=== PATIENT | male | born 1960 | race Caucasian/White ===

== ENCOUNTER → 2016-09-22 | Outpatient (CLI) | payer BC ==
--- NOTE | 2016-09-22 12:42 | XR ---
EXAMINATION TYPE: XR chest 2V DATE OF EXAM: 09/22/2016 12:35 PM COMPARISON: 07/21/2015 HISTORY: Cough FINDINGS: The lungs are clear and there is no pneumothorax, pleural effusion, or focal pneumonia. Stable prom inence of the pulmonary arteries bilaterally correlate for pulmonary arterial hypertension. IMPRESSION: 1. No acute process.
== END | disposition home or self-care (01) ==
LOC: RADXRMAIN 12:26
PROVIDERS: ATTEND Internal Medicine
DX: R05 Cough (principal)
CPT/HCPCS: 71020

== ENCOUNTER 2016-09-25 14:13 | Emergency (ER) | payer BC ==
[2016-09-25] MEDS ORDERED: ACETAMINOPHEN TAB 500 MG TAB PO STA (15:51)
[2016-09-25] MEDS ORDERED: SODIUM CHLORIDE 0.9% 1,000 ML IV STA (15:51)
[2016-09-25] MEDS ORDERED: SODIUM CHLORIDE 0.9% 500 ML IV STA (15:51)
--- NOTE | 2016-09-25 15:55 | ED ---
General Adult HPI - General Chief complaint: Fever Stated complaint: shaking Time Seen by Provider: 09/25/16 15:40 Source: patient, family, RN notes reviewed, old records reviewed Mode of arrival: ambulatory Limitations: no limitations - History of Present Illness Initial comments: Chief complaint and history of present illness this is a 56-year-old male here with his . The patient has had a semi-productive cough he notices to be greenish in color for 6 weeks. He had chest x-ray 3 days ago which was reported to be normal. Today the patient developed a fever and shakes. No specific pains. Denying nasal congestion he does have mild headache from coughing. He reports he coughs so hard sometimes he almost passes out. The patient's denying any chest pain no abdominal pain no flank pain no frequency urgency dysuria no skin rashes. All systems were otherwise reviewed. Past medical problem hypertension. Surgeries none. Family history mother had a stroke father had seizures. Patient denies ALLERGIES nonsmoker drinks alcohol socially. - Related Data Home Medications Medication Instructions Recorded Confirmed Allopurinol [Zyloprim] 100 mg PO DAILY 09/25/16 09/25/16 Ascorbic Acid [Vitamin C] 500 mg PO DAILY 09/25/16 09/25/16 Atenolol [Tenormin] 25 mg PO DAILY 09/25/16 09/25/16 Multivitamins, Thera [Multivitamin] 1 tab PO DAILY 09/25/16 09/25/16 Allergies Allergy/AdvReac Type Severity Reaction Status Date / Time No Known Allergies Allergy Verified 09/25/16 15:56 Review of Systems ROS Statement: Those systems with pertinent positive or pertinent negative responses have been documented in the HPI. ROS Other: All systems not noted in ROS Statement are negative. Past Medical History Past Medical History: Hypertension History of Any Multi-Drug Resistant Organisms: None Reported Past Surgical History: No Surgical Hx Reported Past Psychological History: No Psychological Hx Reported Smoking Status: Never smoker Past Alcohol Use History: Occasional Past Drug Use History: None Reported General Exam - General Exam Comments Initial Comments: General: The patient is awake and alert, planes shakes and chills at work today. No pain. Case of productive green cough. Vital signs temp 11.7 pulse 122 respiratory rate 20 pulse ox 99% room air blood pressure 142/78. The patient does have hypertension and is stressed. He will be seeing his family physician in the next several days. Eye: Pupils are equal, round and reactive to light, extra-ocular movements are intact ; there is normal conjunctiva bilaterally. No signs of icterus. Ears, nose, mouth and throat: There are moist mucous membranes and no oral lesions. Neck: The neck is supple, there is no tenderness no anterior cervical lymphadenopathy. Cardiovascular: Tachycardic heart rate, 120. Patient does have fever.. No murmur, rub or gallop is appreciated. Respiratory: Lungs are clear to auscultation, respirations are non-labored, breath sounds are equal. No wheezes, stridor, rales, or rhonchi. He reports over the last several weeks he's had occasional productive cough greenish in color. Chest x- ray done several days ago at this hospital was reported to be negative by radiology. Gastrointestinal: Soft, non-distended, non-tender abdomen without masses or organomegaly noted. There is no rebound or guarding present. No CVA tenderness. Bowel sounds are unremarkable. Back: There is no tenderness to palpation in the midline. There is no obvious deformity. No rashes noted. Musculoskeletal: Normal ROM, no tenderness, There is no pedal edema. There is no calf tenderness or swelling. Sensation intact. Pulses equal bilaterally 2+. Neurological: No neuro deficits noted or complained of. Skin: Skin is warm and dry and no rashes or lesions are noted. Limitations: no limitations Course Vital Signs 09/25/16 09/25/16 14:29 15:30 Temperature 101.7 F H Pulse Rate 122 H Pulse Rate [ 120 H [employer] ] Respiratory 20 20 Rate Blood Pressure 142/78 O2 Sat by Pulse 99 Oximetry Medical Decision Making - Medical Decision Making Medical decision the patient's white count 12.9 hemoglobin 15 hematocrit 44 with plasma like acid slightly elevated 2.7. Potassium 4.1 BUN 18 creatinine 1.21 with GFR greater than 60 and a sugar of 146. AST ALT mildly elevated influenza negative for AB. Urine clean no signs of infection Again the patient is not complaining of any pain to his head neck chest flanks abdomen or extremities. He was given a gram of Tylenol. Reports feeling significantly better. He was hydrated in the emergency room. Reexamination finds no particular problems with explain other than a viral syndrome this time. The case was discussed with , he states have the patient follow-up with him in office a 145 tomorrow afternoon. Patient advised return emergency room with any questions or problems between now and then. - Lab Data Result diagrams: 09/25/16 16:20 09/25/16 16:20 Lab Results 09/25/16 09/25/16 09/25/16 Range/Units 16:20 16:20 16:20 WBC 12.9 H (3.8-10.6) k/uL RBC 4.87 (4.30-5.90) m/uL Hgb 15.1 (13.0-17.5) gm/dL Hct 44.6 (39.0-53.0) % MCV 91.7 (80.0-100.0) fL MCH 31.1 (25.0-35.0) pg MCHC 33.9 (31.0-37.0) g/dL RDW 12.5 (11.5-15.5) % Plt Count 213 (150-450) k/uL Neutrophils % 92 % Lymphocytes % 2 % Monocytes % 4 % Eosinophils % 1 % Basophils % 0 % Neutrophils # 11.9 H (1.3-7.7) k/uL Lymphocytes # 0.3 L (1.0-4.8) k/uL Monocytes # 0.6 (0-1.0) k/uL Eosinophils # 0.1 (0-0.7) k/uL Basophils # 0.0 (0-0.2) k/uL Sodium 139 (137-145) mmol/L Potassium 4.1 (3.5-5.1) mmol/L Chloride 103 (98-107) mmol/L Carbon Dioxide 22 (22-30) mmol/L Anion Gap 14 mmol/L BUN 18 (9-20) mg/dL Creatinine 1.21 (0.66-1.25) mg/dL Est GFR (MDRD) Af Amer >60 (>60 ml/min/1.73 sqM) Est GFR (MDRD) Non-Af >60 (>60 ml/min/1.73 sqM) Glucose 146 H (74-99) mg/dL Plasma Lactic Acid Wesley (0.7-2.0) mmol/L Calcium 9.5 (8.4-10.2) mg/dL Total Bilirubin 1.1 (0.2-1.3) mg/dL AST 60 H (17-59) U/L ALT 84 H (21-72) U/L Alkaline Phosphatase 68 (38-126) U/L Total Protein 7.4 (6.3-8.2) g/dL Albumin 4.6 (3.5-5.0) g/dL Urine Color Urine Appearance (Clear) Urine pH (5.0-8.0) Ur Specific Roselle (1.001-1.035) Urine Protein (Negative) Urine Glucose (UA) (Negative) Urine Ketones (Negative) Urine Blood (Negative) Urine Nitrate (Negative) Urine Bilirubin (Negative) Urine Urobilinogen (<2.0) mg/dL Ur Leukocyte Esterase (Negative) Influenza Type A RNA Not Detected (Not Detectd) Influenza Type B (PCR) Not Detected (Not Detectd) 09/25/16 09/25/16 Range/Units 16:20 16:20 WBC (3.8-10.6) k/uL RBC (4.30-5.90) m/uL Hgb (13.0-17.5) gm/dL Hct (39.0-53.0) % MCV (80.0-100.0) fL MCH (25.0-35.0) pg MCHC (31.0-37.0) g/dL RDW (11.5-15.5) % Plt Count (150-450) k/uL Neutrophils % % Lymphocytes % % Monocytes % % Eosinophils % % Basophils % % Neutrophils # (1.3-7.7) k/uL Lymphocytes # (1.0-4.8) k/uL Monocytes # (0-1.0) k/uL Eosinophils # (0-0.7) k/uL Basophils # (0-0.2) k/uL Sodium (137-145) mmol/L Potassium (3.5-5.1) mmol/L Chloride (98-107) mmol/L Carbon Dioxide (22-30) mmol/L Anion Gap mmol/L BUN (9-20) mg/dL Creatinine (0.66-1.25) mg/dL Est GFR (MDRD) Af Amer (>60 ml/min/1.73 sqM) Est GFR (MDRD) Non-Af (>60 ml/min/1.73 sqM) Glucose (74-99) mg/dL Plasma Lactic Acid Wesley 2.7 H* (0.7-2.0) mmol/L Calcium (8.4-10.2) mg/dL Total Bilirubin (0.2-1.3) mg/dL AST (17-59) U/L ALT (21-72) U/L Alkaline Phosphatase (38-126) U/L Total Protein (6.3-8.2) g/dL Albumin (3.5-5.0) g/dL Urine Color Yellow Urine Appearance Clear (Clear) Urine pH 5.5 (5.0-8.0) Ur Specific Ros[place] 1.015 (1.001-1.035) Urine Protein Negative (Negative) Urine Glucose (UA) Negative (Negative) Urine Ketones Negative (Negative) Urine Blood Negative (Negative) Urine Nitrate Negative (Negative) Urine Bilirubin Negative (Negative) Urine Urobilinogen <2.0 (<2.0) mg/dL Ur Leukocyte Esterase Negative (Negative) Influenza Type A RNA (Not Detectd) Influenza Type B (PCR) (Not Detectd) Disposition Clinical Impression: Acute viral syndrome Disposition: HOME SELF-CARE Condition: Stable Instructions: Fever in Adults (ED) Additional Instructions: Continue with Tylenol or ibuprofen for fever. Follow-up with tomorrow at 1: 45 PM in office. Return emergency room if having difficulties or problems. Time of Disposition: 18:02
[2016-09-25 16:44] LABS: Appearance,Urine Clear (Clear); Bilirubin,Urine Negative (Negative); Glucose,Urine (UA) Negative (Negative); Ketones,Urine Negative (Negative); Leukocyte Esterase,Urine Negative (Negative); Nitrite,Urine Negative (Negative); PH, Urine 5.5 (5.0-8.0); Protein,Urine Negative (Negative); Specific Gravity,Urine 1.015 (1.001-1.035); UA Billing (MACRO vs. MICRO) CHEM; Urobilinogen,Urine <2.0 mg/dL (<2.0)
[2016-09-25 16:54] LABS: Basophils % (A) 0 %; CH 32.5; CHCM 35.6; Eosinophils # (A) 0.1 k/uL (0-0.7); Eosinophils % (A) 1 %; HCT 44.6 % (39.0-53.0); HGB 15.1 gm/dL (13.0-17.5); Luc # (Auto) 0.03; Luc % (Auto) 0; Lymphocytes # (A) 0.3 k/uL (1.0-4.8); Lymphocytes % (A) 2 %; MCH 31.1 pg (25.0-35.0); MCHC 33.9 g/dL (31.0-37.0); MCV 91.7 fL (80.0-100.0); Mean Platelet Volume 7.8; Monocytes # (A) 0.6 k/uL (0-1.0); Monocytes % (A) 4 %; Neutrophils # (A) 11.9 k/uL (1.3-7.7); Neutrophils % (A) 92 %; RBC 4.87 m/uL (4.30-5.90); RDW 12.5 % (11.5-15.5); WBC 12.9 k/uL (3.8-10.6)
[2016-09-25 17:05] LABS: ALT 84 U/L (21-72); AST 60 U/L (17-59); Alkaline Phosphatase 68 U/L (38-126); Anion Gap 14 mmol/L; Blood Urea Nitrogen 18 mg/dL (9-20); Calcium 9.5 mg/dL (8.4-10.2); Carbon Dioxide 22 mmol/L (22-30); Chloride 103 mmol/L (98-107); Glucose 146 mg/dL (74-99); Non-African American GFR(MDRD) >60 (>60 ml/min/1.73 sqM); Potassium 4.1 mmol/L (3.5-5.1); Sodium 139 mmol/L (137-145); Total Bilirubin 1.1 mg/dL (0.2-1.3); Total Protein 7.4 g/dL (6.3-8.2)
[2016-09-25 18:03] VITALS: BP 126/63; PULSE 104; RESP 18; TEMP 101.9
[2016-09-25] MEDS ORDERED: IBUPROFEN 600 MG STARTER PACK 4 TAB BTL PO STA (18:03)
== END 2016-09-25 18:33 | disposition home or self-care (01) ==
LOC: EC 14:13
DX: B34.9 Viral infection, unspecified (principal); I10 Essential (primary) hypertension
CPT/HCPCS: 36415; 80053; 81003; 83605; 85025; 87040; 87077; 87086; 87186; 87502; 96360; 99284

== ENCOUNTER → 2017-01-13 | Outpatient (CLI) | payer BC ==
[2017-01-13 08:49] LABS: Basophils % (A) 1 %; CH 31.6; CHCM 33.8; Eosinophils # (A) 0.2 k/uL (0-0.7); Eosinophils % (A) 4 %; HCT 49.8 % (39.0-53.0); HDW 2.57; Luc # (Auto) 0.15; Luc % (Auto) 2; Lymphocytes # (A) 1.3 k/uL (1.0-4.8); Lymphocytes % (A) 20 %; MCH 32.1 pg (25.0-35.0); MCHC 34.2 g/dL (31.0-37.0); Monocytes # (A) 0.6 k/uL (0-1.0); Monocytes % (A) 9 %; Neutrophils # (A) 4.1 k/uL (1.3-7.7); Neutrophils % (A) 64 %; WBC 6.4 k/uL (3.8-10.6); WBC (Perox) 6.19
[2017-01-13 08:50] LABS: Appearance,Urine Clear (Clear); Bilirubin,Urine Negative (Negative); Glucose,Urine (UA) Negative (Negative); Ketones,Urine Negative (Negative); Leukocyte Esterase,Urine Negative (Negative); Nitrite,Urine Negative (Negative); Protein,Urine Negative (Negative); Specific Gravity,Urine 1.009 (1.001-1.035); UA Billing (MACRO vs. MICRO) CHEM; Urobilinogen,Urine <2.0 mg/dL (<2.0)
[2017-01-13 10:25] LABS: Hemoglobin A1C 5.5 % (4.2-6.1)
[2017-01-13 12:26] LABS: ALT 90 U/L (21-72); AST 60 U/L (17-59); Alkaline Phosphatase 73 U/L (38-126); Anion Gap 10 mmol/L; Blood Urea Nitrogen 12 mg/dL (9-20); Calcium 9.3 mg/dL (8.4-10.2); Carbon Dioxide 24 mmol/L (22-30); Chloride 108 mmol/L (98-107); Cholesterol 173 mg/dL (<200); Creatine Kinase 156 U/L (55-170); Glucose 121 mg/dL (74-99); HDL Cholesterol 46 mg/dL (40-60); Non-African American GFR(MDRD) >60 (>60 ml/min/1.73 sqM); Potassium 4.4 mmol/L (3.5-5.1); Sodium 142 mmol/L (137-145); Total Bilirubin 0.7 mg/dL (0.2-1.3); Total Protein 7.6 g/dL (6.3-8.2); Triglycerides 114 mg/dL (<150); Uric Acid 7.2 mg/dL (3.5-8.5)
[2017-01-14 12:17] LABS: Prostate Specific Antigen 1.22 ng/mL (0.00-4.00)
== END | disposition home or self-care (01) ==
LOC: LABWHC1 08:16
PROVIDERS: ATTEND Internal Medicine
DX: N40.0 Benign prostatic hyperplasia without lower urinary tract symptoms (principal); E78.00 Pure hypercholesterolemia, unspecified; I10 Essential (primary) hypertension
CPT/HCPCS: 36415; 80053; 80061; 81003; 82550; 83036; 84153; 84439; 84443; 84550; 85025

== ENCOUNTER → 2018-06-19 | Outpatient (CLI) | payer BC ==
--- NOTE | 2018-06-19 13:14 | XR ---
EXAMINATION TYPE: XR cervical spine comp DATE OF EXAM: 06/19/2018 COMPARISON: 07/13/2014 HISTORY: 58-year-old male cervical stenosis, right shoulder pain TECHNIQUE: 6 views FINDINGS: No predental space widening or prevertebral soft tissue swelling. Reversal of the normal cervical agnes dosis. Degenerative changes at the C1 dens articulation. Uncovertebral joint and facet arthropathy th roughout. Alignment is maintained. Normal odontoid view. Mild degenerative disc space narrowing at C5 -C6 and C6-C7. On the right, there is moderate bony spondylotic near foraminal narrowing at C6-C7 and mild at C3-C4 and C5-C6. On the left, limited obliquity for optimal assessment of the neuroforamen. Possibly moderate narrowin g at C6-C7 and mild at C5-C6. IMPRESSION: Mild to moderate multilevel spondylotic change. Moderate neuroforaminal narrowing on the right at C6- C7 and mild at C3-C4 and C5-C6.
== END ==
LOC: RADXRMAIN 12:19
PROVIDERS: ATTEND Internal Medicine
DX: M99.71 Connective tissue and disc stenosis of intervertebral foramina of cervical region (principal); M47.812 Spondylosis without myelopathy or radiculopathy, cervical region
CPT/HCPCS: 72050

== ENCOUNTER → 2019-03-06 | Outpatient (CLI) | payer BC ==
--- NOTE | 2019-03-06 11:43 | XR ---
EXAMINATION TYPE: XR chest 2V DATE OF EXAM: 03/06/2019 COMPARISON: 09/22/2016 HISTORY: 59-year-old male with cough TECHNIQUE: Frontal and lateral views FINDINGS: The cardiomediastinal silhouette, aorta, and pulmonary vasculature are within normal limits. Lungs an d pleural spaces are clear. IMPRESSION: No acute cardiopulmonary process.
== END | disposition home or self-care (01) ==
LOC: RADXRMAIN 09:21
PROVIDERS: ATTEND Internal Medicine
DX: R05 Cough (principal)
CPT/HCPCS: 71046

== ENCOUNTER → 2020-02-16 | Outpatient (CLI) | payer BC ==
[2020-02-16 10:12] LABS: Basophils % (A) 0 %; Eosinophils # (A) 0.2 k/uL (0-0.7); Eosinophils % (A) 3 %; HCT 46.6 % (39.0-53.0); HGB 15.5 gm/dL (13.0-17.5); Lymphocytes # (A) 2.4 k/uL (1.0-4.8); Lymphocytes % (A) 32 %; MCH 31.6 pg (25.0-35.0); MCHC 33.4 g/dL (31.0-37.0); MCV 94.8 fL (80.0-100.0); Mean Platelet Volume 7.6; Monocytes # (A) 0.5 k/uL (0-1.0); Monocytes % (A) 7 %; Neutrophils # (A) 4.1 k/uL (1.3-7.7); Neutrophils % (A) 55 %; Platelet Count 255 k/uL (150-450); RBC 4.91 m/uL (4.30-5.90); RDW 12.2 % (11.5-15.5); WBC 7.5 k/uL (3.8-10.6)
[2020-02-16 17:20] LABS: African American GFR (CKD) 82.9 (60.0-200.0); BUN/Creat Ratio 12.73 Ratio (12.00-20.00); Calcium 9.2 mg/dL (8.7-10.3); Non-African American GFR(CKD) 71.6 (60.0-200.0); Potassium 4.5 mmol/L (3.5-5.5)
== END | disposition home or self-care (01) ==
LOC: LABWHC1 09:33
PROVIDERS: ATTEND Urology
DX: N43.41 Spermatocele of epididymis, single (principal)
CPT/HCPCS: 36415; 80048; 85025

== ENCOUNTER → 2020-06-29 | Outpatient (CLI) | payer BC ==
--- NOTE | 2020-06-29 20:38 | CT ---
EXAMINATION TYPE: CT soft tissue neck w con DATE OF EXAM: 06/29/2020 COMPARISON: 05/06/2014 HISTORY: Right parotitis, Sialoadenitis CT DLP: 538.30 mGycm CONTRAST: Patient injected with 100 ml mL of Isovue 300. TECHNIQUE: Axial images at 3 mm thick sections. Reconstructed images in the coronal plane and sagitt al plane are reviewed. FINDINGS: Limited CT sections are obtained the lung apices. The lung apices appear clear. CT neck: The torus tubarius and fossa of Rosenmuller are normal. Finance Lead spaces are normal. Para nasal sinuses and mastoid air cells are clear. Submandibular glands appear normal. No suspicious calcifications are evident. Parotid glands appear n ormal. No suspicious calcifications are evident. Submental space appears normal. Expected region of t he ducts is normal. Parotid glands appear normal and symmetrical. Submandibular glands, are normal. Parapharyngeal spaces are normal. No suspicious adenopathy is evident. The hypopharynx appears within normal limits. Vocal cord level appear symmetrical. Thyroid as visualized is normal. Osseous structures are normal. IMPRESSIONS: 1. No suspicious changes suggest a calcification within the salivary ducts. Right Parotid and subman dibular glands are unremarkable.
== END | disposition home or self-care (01) ==
LOC: RADCTMAIN 08:02
PROVIDERS: ATTEND Otolaryngology
DX: R22.1 Localized swelling, mass and lump, neck (principal); K11.20 Sialoadenitis, unspecified
CPT/HCPCS: 70491; Q9967

== ENCOUNTER → 2020-07-15 | Outpatient (CLI) | payer BC | END | disposition home or self-care (01) | LOC: LABWHC1 11:13 | PROVIDERS: ATTEND Internal Medicine | DX: Z20.828 Contact with and (suspected) exposure to other viral communicable diseases (principal) | CPT/HCPCS: U0003; C9803 ==

== ENCOUNTER → 2020-07-29 | Outpatient (CLI) | payer BC | END | disposition home or self-care (01) | LOC: LABWHC1 15:42 | PROVIDERS: ATTEND Internal Medicine | DX: Z20.828 Contact with and (suspected) exposure to other viral communicable diseases (principal) | CPT/HCPCS: U0003; C9803 ==

== ENCOUNTER → 2020-12-23 | Outpatient (CLI) | payer BC | END | disposition home or self-care (01) | LOC: LABWHC1 13:53 | PROVIDERS: ATTEND Internal Medicine | DX: Z20.822 Contact with and (suspected) exposure to COVID-19 (principal) | CPT/HCPCS: 36415; 86769 ==

== ENCOUNTER → 2020-12-28 | Outpatient (CLI) | payer BC ==
--- NOTE | 2020-12-28 14:49 | XR ---
EXAMINATION TYPE: XR chest 2V DATE OF EXAM: 12/28/2020 COMPARISON: 03/06/2019 HISTORY: 60-year-old male U07.1, COVID 19. TECHNIQUE: Frontal and lateral views FINDINGS: Heart normal size. Aorta and pulmonary vasculature within normal limits. Some minimal strandy areas o f atelectasis. No consolidation or pleural effusion. IMPRESSION: No acute cardiopulmonary process.
== END | disposition home or self-care (01) ==
LOC: RADXRMAIN 12:07
PROVIDERS: ATTEND Internal Medicine
DX: U07.1 COVID-19 (principal)
CPT/HCPCS: 71046

== ENCOUNTER → 2021-09-23 | Outpatient (CLI) | payer BC ==
[2021-09-23 14:47] LABS: Basophils # (A) 0.04 X 10*3/uL (0.00-0.10); Basophils % (A) 0.5 %; Eosinophils # (A) 0.15 X 10*3/uL (0.04-0.35); HCT 48.3 % (39.6-50.0); HGB 15.7 g/dL (13.0-17.0); Lymphocytes # (A) 2.43 X 10*3/uL (0.90-5.00); Lymphocytes % (A) 32.7 %; MCH 30.5 pg (27.0-32.0); MCHC 32.5 g/dL (32.0-37.0); Mean Platelet Volume 9.6 fL (9.5-12.2); Monocytes % (A) 9.4 %; Neutrophils # (A) 4.07 X 10*3/uL (1.80-7.70); Neutrophils % (A) 54.7 %; Platelet Count 267 X 10*3/uL (140-440); RBC 5.14 X 10*6/uL (4.40-5.60); RDW 12.1 % (11.5-14.5); WBC 7.44 X 10*3/uL (4.50-10.00)
[2021-09-23 15:50] LABS: ALT 65 U/L (10-49); AST 55 U/L (14-35); African American GFR (CKD) 79.7 (60.0-200.0); Albumin 5.2 g/dL (3.8-4.9); Albumin/Globulin Ratio 2.18 (1.60-3.17); Alkaline Phosphatase 80 U/L (41-126); Amylase 65 U/L (23-121); BUN/Creat Ratio 14.42 Ratio (12.00-20.00); Blood Urea Nitrogen 16.3 mg/dL (9.0-27.0); Calcium 9.7 mg/dL (8.7-10.3); Carbon Dioxide 22.4 mmol/L (20.0-27.5); Chloride 101 mmol/L (96-109); Chol/HDL Ratio 3.14 Ratio; Globulin 2.4 g/dL (1.6-3.3); Glucose 107 mg/dL (70-110); LDH 211 U/L (120-246); LDL Cholesterol,Calculated 85.3 mg/dL (0.0-131.0); Lipase 93 U/L (14-60); Non-African American GFR(CKD) 68.8 (60.0-200.0); Potassium 4.6 mmol/L (3.5-5.5); Sodium 137 mmol/L (135-145); Total Protein 7.6 g/dL (6.2-8.2); Uric Acid 8.1 mg/dL (3.7-8.7)
== END | disposition home or self-care (01) ==
LOC: LABWHC1 09:59
PROVIDERS: ATTEND Internal Medicine
DX: E78.2 Mixed hyperlipidemia (principal); R10.12 Left upper quadrant pain; N40.0 Benign prostatic hyperplasia without lower urinary tract symptoms; M10.00 Idiopathic gout, unspecified site
CPT/HCPCS: 36415; 80053; 80061; 82150; 83036; 83615; 83690; 84153; 84550; 85025

== ENCOUNTER → 2021-09-30 | Outpatient (CLI) | payer BC ==
--- NOTE | 2021-09-30 20:02 | CT ---
EXAMINATION TYPE: CT abdomen w con CT DLP: 1617.9 mGycm, Automated exposure control for dose reduction was used. DATE OF EXAM: 09/30/2021 6:28 PM COMPARISON: None CLINICAL INDICATION:Male, 61 years old with history of R10.12 Left Upper quad pain, LUQ PAIN TECHNIQUE: Standard CT of the abdomen following the administration of 100 cc of Isovue 300 IV contr ast material. Coronal and sagittal reformats were performed. FINDINGS: LOWER CHEST: Unremarkable ABDOMEN LIVER: Unremarkable GALLBLADDER AND BILE DUCTS: Unremarkable. PANCREAS: Unremarkable. SPLEEN: Small splenule is present. ADRENAL GLANDS: Unremarkable. KIDNEYS AND URETERS: No evidence of hydronephrosis or renal calculus. The ureters are unremarkable. STOMACH AND BOWEL: No evidence of bowel obstruction. PERITONEUM: No evidence of pneumoperitoneum or free fluid. VASCULATURE: Mild atherosclerotic calcifications are present throughout the abdominal aorta and its b ranches. MUSCULOSKELETAL: Moderate disc degeneration changes are present throughout the thoracolumbar spine. LYMPH NODES: No gross evidence for lymphadenopathy. SOFT TISSUE/ABDOMINAL WALL: Unremarkable IMPRESSION: 1. No evidence for acute abdominal process or finding to explain the patient's symptomology. 2. Colonic diverticulosis.
== END | disposition home or self-care (01) ==
LOC: RADCTMAIN 17:18
PROVIDERS: ATTEND Internal Medicine
DX: K57.30 Diverticulosis of large intestine without perforation or abscess without bleeding (principal)
CPT/HCPCS: 74160; Q9967

== ENCOUNTER → 2021-10-21 | Outpatient (CLI) | payer BC ==
--- NOTE | 2021-10-21 08:26 | US ---
EXAMINATION TYPE: US abdomen complete DATE OF EXAM: 10/21/2021 COMPARISON: CT 09/30/2021 CLINICAL HISTORY: R10.12 Left upper quadrant pain. LUQ pain for the past 5 years EXAM MEASUREMENTS: Liver Length: 17.2 cm Gallbladder Wall: 0.2 cm CBD: 0.3 cm Spleen: 11.5 x 4.6 cm Right Kidney: 12.2 x 5.6 x 5.5 cm Left Kidney: 10.6 x 5.6 x 6.4 cm Pancreas: wnl Liver: Increased attenuation, decreased visualization of vessels suggestive of fatty infiltrate Gallbladder: No stones seen Evidence for sonographic Lynn's sign: No CBD: wnl Spleen: wnl Right Kidney: No hydronephrosis or masses seen Left Kidney: No hydronephrosis or masses seen Upper IVC: wnl Abd Aorta: wnl No abnormalities seen at this time. The liver is homogenous. The intrahepatic portion of the IVC and proximal abdominal aorta are within normal limits. There is no evidence of cholelithiasis. Common bile duct is unremarkable. The visu alized portions of the pancreas are homogenous. The spleen is unremarkable. Kidneys are symmetric a nd free of hydronephrosis. No renal lesions are seen. IMPRESSION: No distinct abnormality appreciated.
== END | disposition home or self-care (01) ==
LOC: RADUSWWP 07:24
PROVIDERS: ATTEND Internal Medicine Gastroenterology
DX: R10.12 Left upper quadrant pain (principal)
CPT/HCPCS: 76700

== ENCOUNTER → 2021-11-08 | Outpatient (CLI) | payer BC ==
--- NOTE | 2021-11-09 06:49 | MR ---
EXAMINATION TYPE: MR conchita/lspine wo con DATE OF EXAM: 11/08/2021 COMPARISON: None HISTORY: Mid back and left low back pain for 6 weeks Multiplanar multiecho imaging of the thoracic and lumbar spine without contrast. Thoracic vertebra have normal alignment. There is minimal posterior disc bulging and several levels of the mid and lower thoracic spine. There is developmentally adequate Spinal canal and no spinal st enosis. Thoracic spinal cord has normal signal pattern. There is no edema. There is no thoracic paraspinal mass. The neural foramina are well maintained. There is loss of heigh t of lower thoracic vertebra involving T9 and T10 and T11 of approximately 10%. The lumbar vertebrae have normal alignment. There is degenerative disc space narrowing and decreased signal in the disks from L3 to S1. There is no significant compression deformity. There is small post erior disc bulging at L3-4 and L5-S1. There is adequate spinal canal and no significant spinal stenos is. The neural foramina are fairly well maintained. There is no lumbar paraspinal mass. The sacroilia c joints appear intact. IMPRESSION: There are spondylotic changes in the thoracic and lumbar spine. There is minimal loss of height of lo wer thoracic vertebra probably related to minimal insufficiency fractures. No significant bone edema seen to suggest an acute fracture. No thoracic spinal stenosis. Multilevel mild thoracic posterior di sc bulging. Degenerative disc changes in the lower lumbar spine with posterior mild disc bulging at L3-4 and L5-S 1 without significant impingement on the spinal canal. No lumbar spinal stenosis.
== END | disposition home or self-care (01) ==
LOC: RADMRIMAIN 11:52
PROVIDERS: ATTEND Internal Medicine
DX: M47.16 Other spondylosis with myelopathy, lumbar region (principal); M51.06 Intervertebral disc disorders with myelopathy, lumbar region; M47.14 Other spondylosis with myelopathy, thoracic region; M51.27 Other intervertebral disc displacement, lumbosacral region
CPT/HCPCS: 72146; 72148

== ENCOUNTER → 2023-01-26 | Outpatient (CLI) | payer BC ==
--- NOTE | 2023-01-26 09:38 | US ---
EXAMINATION TYPE: US liver DATE OF EXAM: 01/26/2023 COMPARISON: US & CT from 2021 CLINICAL INDICATION: Male, 63 years old with history of R74.8 ELEVATED LIVER ENZYMES; TECHNIQUE: Multiple sonographic images of the right upper quadrant are obtained. FINDINGS: EXAM MEASUREMENTS: Liver Length: 15.3 cm Gallbladder Wall: 0.3 cm CBD: 0.5 cm Right Kidney: 12.5 x 6.5 x 6.3 cm VETERINARY ASSISTANT NOTES: Pancreas: Obscured by bowel gas Liver: wnl Gallbladder: No stones seen Evidence for sonographic Lynn's sign: No CBD: wnl Right Kidney: No hydronephrosis or masses seen Pancreas is poorly visualized due to overlying bowel gas. Liver is diffusely hyperechoic without foca l lesion identified. Gallbladder is unremarkable without evidence of cholelithiasis, pericholecystic fluid, or wall thickening. Per systems test engineer, negative sonographic Lynn sign. The common bile duct is within normal limits. The right kidney is unremarkable without evidence of solid mass, hydronephrosi s, or nephrolithiasis. IMPRESSION: 1. No acute process. 2. Hepatic steatosis.
== END | disposition home or self-care (01) ==
LOC: RADUSWWP 06:51
PROVIDERS: ATTEND Internal Medicine
DX: K76.0 Fatty (change of) liver, not elsewhere classified (principal); R74.8 Abnormal levels of other serum enzymes
CPT/HCPCS: 76705

== ENCOUNTER → 2023-10-03 | Outpatient (CLI) | payer BC ==
--- NOTE | 2023-10-03 15:45 | CT ---
EXAMINATION TYPE: CT chest w con CT DLP: 810 mGycm, Automated exposure control for dose reduction was used. DATE OF EXAM: 10/03/2023 1:57 PM COMPARISON: 07/28/2015 CLINICAL INDICATION:Male, 63 years old with history of R05.3 CHRONIC COUGH; PHH, TECHNIQUE: Multiple axial images were obtained through the chest. Sagittal and coronal reformats were created for review. Contrast used: mL of (None if empty) Oral contrast used: (None if empty) FINDINGS: LUNGS/ PLEURA: No focal consolidation, pneumothorax or pleural effusion. AIRWAY: Patent and unremarkable. No bronchial wall thickening or bronchiectasis. HEART: Size within normal limits. MEDIASTINUM: No gross evidence of adenopathy. Small hiatal hernia. VASCULATURE: No aortic aneurysm. MUSCULOSKELETAL: No acute osseous abnormalities SOFT TISSUES/LYMPH NODES: Unremarkable. LOWER NECK: No significant findings. UPPER ABDOMEN: Diffuse low-attenuation to the liver parenchyma. IMPRESSION: 1. No evidence for acute process. No evidence for rib fracture. 2. Hepatic steatosis. 3. Small hiatal hernia. 4. Follow up recommendations for incidental pulmonary nodules, if there are any, are per Fleischner[employer] or [employer]. https://[email or web address].org/articles/cpgxhdhjgm-[email or web address]?lang=us
== END | disposition home or self-care (01) ==
LOC: RADCTMAIN 13:33
PROVIDERS: ATTEND Internal Medicine
DX: K76.0 Fatty (change of) liver, not elsewhere classified (principal); K44.9 Diaphragmatic hernia without obstruction or gangrene; R05.3 Chronic cough
CPT/HCPCS: 71260; Q9967

== ENCOUNTER → 2023-11-23 | Outpatient (CLI) | payer BC ==
--- NOTE | 2023-11-25 18:31 | CT ---
EXAMINATION TYPE: CT soft tissue neck w con CT DLP: 658 mGycm, Automated exposure control for dose reduction was used. DATE OF EXAM: 11/23/2023 1:10 PM COMPARISON: 06/29/2020. CLINICAL INDICATION:Male, 63 years old with history of R59.9 ENLARGED LYMPH NODE; PHH, lump to left s kimmie of neck TECHNIQUE: Standard enhanced CT of the neck. Axial sections with coronal and sagittal reformats were obtained. Palpable marker place at the discretion of the patient on the left neck. Contrast used:100 mL of Isovue 300 with IV Contrast, (None if empty) Oral contrast used: (None if empty) FINDINGS: Brain: Visualized portions are grossly unremarkable. Orbits: Unremarkable Sinuses: Grossly unremarkable. Spaces of the neck: Clear and symmetric. Palpable marker correlates with the left submandibular gland . No lymphadenopathy, mass or suspicious finding in the area of the palpable marker. Musculoskeletal: No acute osseous pathology. Lymph nodes: Multiple nonenlarged lymph nodes are seen along both anterior chains of the neck. Vascular structures: Visualized major arteries are patent without evidence of aneurysm. Thoracic Inlet/airway: Airway is patent. The lung apices are clear. Soft tissues/Thyroid: Thyroid and remainder of the soft tissues are unremarkable. Other: none. IMPRESSION Palpable marker correlates with the left submandibular gland. No lymphadenopathy, mass or suspicious finding in area of the palpable marker.
== END | disposition home or self-care (01) ==
LOC: RADCTMAIN 12:27
PROVIDERS: ATTEND Internal Medicine
DX: R59.9 Enlarged lymph nodes, unspecified (principal)
CPT/HCPCS: 70491; Q9967